=== PATIENT | female | born 1975 | race Caucasian/White ===

== ENCOUNTER 2018-04-09 17:07 | Emergency (ER) | payer MEDICAID ==
[~2018-04-09] VITALS: Ht 170.2 cm; Wt 87.0 kg
[2018-04-09] MEDS ORDERED: METH-611 GT (17:21)
[2018-04-09] MEDS ORDERED: LORAZEPAM 2MG/ML CPJ IV STA (18:02)
[2018-04-09] MEDS ORDERED: SODIUM CHLORIDE 0.9% 1,000 ML IV ONE (18:02)
[2018-04-09] MEDS ORDERED: ONDANSETRON HCL 4MG/2ML VIAL IV ONE (18:15)
[2018-04-09 18:32] LABS: BASOPHILS % 0.8 % (0.0-2.0); EOSINOPHILS % 0.8 % (0.0-5.0); HEMOGLOBIN. 13.5 g/dL (12.0-16.0); LYMPHOCYTES % 31.6 % (20.0-50.0); MEAN CORPUSCULAR HEMOGLOBIN 28.3 pg (28.0-32.0); MEAN CORPUSCULAR VOLUME 84.1 fL (81.0-99.0); MEAN PLATELET VOLUME 8.5 fl (7.4-10.4); MONOCYTES % 8.2 % (2.0-8.0); NEUTROPHILS % 58.6 % (40.0-76.0); PLATELET 378 x1000/uL (130-400); RED BLOOD CELL COUNT 4.75 mill/uL (4.2-5.4)
[2018-04-09 18:35] LABS: INR 1.1
[2018-04-09 18:36] LABS: CHLORIDE 110 mEq/L (98-107)
[2018-04-09 18:39] LABS: CLARITY URINE TURBID (CLEAR); COLOR URINE DARK YELLOW (YELLOW); KETONES URINE TRACE (NEGATIVE); LEUKOCYTE ESTERASE URINE NEGATIVE (NEGATIVE); NITRITE URINE NEGATIVE (NEGATIVE); OCCULT BLOOD URINE 3+ (NEGATIVE); PROTEIN URINE 1+ (NEGATIVE); SPECIFIC GRAVITY URINE 1.032 (1.005-1.030)
[2018-04-09 18:41] LABS: AMMONIA 29 uMol/L (<32); ETHANOL BLOOD < 10 mg/dL; HCG SCREEN NEGATIVE
[2018-04-09 18:45] LABS: CREATINE KINASE 238 IU/L (26-192)
[2018-04-09 18:49] LABS: *BARBITURATES SCREEN URINE NEGATIVE (NEGATIVE); *BENZODIAZEPINES SCREEN URINE NEGATIVE (NEGATIVE); PHENCYCLIDINE URINE SCREEN NEGATIVE (NEGATIVE)
[2018-04-09 18:50] LABS: CANNABINOID URINE SCREEN NEGATIVE (NEGATIVE)
[2018-04-09 18:54] LABS: *AMPHETAMINES SCREEN URINE PRESUMTIVE POSITIVE (NEGATIVE); *COCAINE SCREEN URINE PRESUMTIVE POSITIVE (NEGATIVE); METHADONE URINE SCREEN PRESUMTIVE POSITIVE (NEGATIVE); OPIATES URINE SCREEN PRESUMTIVE POSITIVE (NEGATIVE)
[2018-04-10 08:00] VITALS: BP 120/70
== END 2018-04-10 10:11 | disposition home or self-care (01) ==
LOC: ER 17:24
DX: T40.5X2A Poisoning by cocaine, intentional self-harm, initial encounter (principal); T43.622A Poisoning by amphetamines, intentional self-harm, initial encounter; T40.2X2A Poisoning by other opioids, intentional self-harm, initial encounter; R00.0 Tachycardia, unspecified; R03.0 Elevated blood-pressure reading, without diagnosis of hypertension; F43.9 Reaction to severe stress, unspecified; Y92.481 Parking lot as the place of occurrence of the external cause
CPT/HCPCS: 36415; 71045; 80053; 80305; 80307; 80329; 81003; 81025; 82140; 82550; 83880; 84443; 84484; 84703; 85025; 85610; 93005; 96374; 96375; 99285; G0482; J2060; J2405; J7030; Z7610

== ENCOUNTER 2018-04-10 12:59 | Emergency (ER) | payer MEDICAID ==
[~2018-04-10] VITALS: Ht 160 cm; Wt 73.0 kg
[~2018-04-10 12:59] MED LIST: METH-611 GT
[2018-04-10 17:54] VITALS: BP 140/92
== END 2018-04-10 19:13 | disposition left against medical advice (07) ==
LOC: ER 15:34
DX: F41.9 Anxiety disorder, unspecified (principal)
CPT/HCPCS: 99281